=== PATIENT | male | born 1955 | race Caucasian/White ===

== ENCOUNTER 2019-04-10 11:24 | Inpatient (IN) | payer OTHER ==
[2019-04-10 13:00] VITALS: BMI 30.8
--- NOTE | 2019-04-10 14:01 | HP ---
CIWA Score Nausea/Vomitin Muscle Tremors: 4-Moderate,w/Arms Extend Anxiety: 2 Agitation: 0-Normal Activity Paroxysmal Sweats: 2 Orientation: 0-Oriented Tacttile Disturbances: 2-Mild Itch/Numbness/Burn Auditory Disturbances: 0-None Visual Disturbances: 2-Mild Sensitivity Headache: 0-None Present CIWA-Ar Total Score: 14 - Admission Criteria OASAS Guidelines: Admission for Medically Managed Detox: Requires at least one of the followin. CIWA greater than 12 2. Seizures within the past 24 hours 3. Delirium tremens within the past 24 hours 4. Hallucinations within the past 24 hours 5. Acute intervention needed for co occurring medical disorder 6. Acute intervention needed for co occurring psychiatric disorder 7. Severe withdrawal that cannot be handled at a lower level of care (continued vomiting, continued diarrhea, abnormal vital signs) requiring intravenous medication and/or fluids 8. Admission ROS S - HPI Allergies/Adverse Reactions: Allergies Allergy/AdvReac Type Severity Reaction Status Date / Time No Known Allergies Allergy Verified 04/10/19 12:48 History of Present Illness: 64 y.o. male requesting detox from etoh use , reports 2-3 pints vodka/day x 2 years after life stressors , latest use yesterday evening , current symptoms as above ,starts drinking upon awakening 8 am , + blackout on Sunday , + fall while intoxicated denies head injury , has had falls in the past w/ knee injury , + tremors if not drinking , current ludmila 0.057 . tobacco : 1 ppd cannabis- sporadically PMHX : htn, hypothyroid , spinal stenosis , early MS / neurologiical deficit, OA pshx :denies psych : depression , anxiety , denies SI / HI shx : lives [place] , unemployed - Ebola screening Have you traveled outside of the country in the last 21 days: No Have you had contact with anyone from an Ebola affected area: No Do you have a fever: No - Review of Systems Constitutional: Loss of Appetite EENT: reports: Other (glasses - reading denutres - upper) Respiratory: reports: No Symptoms reported Cardiac: reports: No Symptoms Reported GI: reports: See HPI, Nausea, Poor Appetite : reports: No Symptoms Reported Musculoskeletal: reports: Back Pain, Joint Pain Integumentary: reports: No Symptoms Reported Neuro: reports: See HPI, Tremors Endocrine: reports: See HPI Psychiatric: reports: Orientated x3, Agitated, Anxious Patient History - Smoking Cessation Smoking history: Current every day smoker Have you smoked in the past 12 months: Yes Hx Chewing Tobacco Use: No Initiated information on smoking cessation: Yes 'Breaking Loose' booklet given: 04/10/19 - Substances abused Alcohol Substance route: Oral Frequency: Daily Amount used: 2 pints of vodka Age of first use: 17 Date of last use: 04/09/19 Admission Physical Exam S - Vital Signs Vital Signs: Vital Signs - 24 hr 04/10/19 12:48 Temperature 97.4 F L Pulse Rate 76 Respiratory 20 Rate Blood Pressure 150/85 - Physical General Appearance: Yes: Moderate Distress, Intoxicated, Irritable, Sweating, Anxious HEENTM: Yes: EOMI, Hearing grossly Normal, Normocephalic, Normal Voice Respiratory: Yes: Chest Non-Tender, Lungs Clear, Normal Breath Sounds, No Respiratory Distress, No Accessory Muscle Use Neck: Yes: No masses,lesions,Nodules, Trachea in good position Cardiology: Yes: Regular Rhythm, Regular Rate, S1, S2 Abdominal: Yes: Normal Bowel Sounds, Non Tender, Soft Musculoskeletal: Yes: Gait Steady, Joint Stiffness ([place] knees) Extremities: Yes: Normal Range of Motion, Non-Tender, Tremors Neurological: Yes: Fully Oriented, Alert, Motor Strength 5/5, Depressed Affect Integumentary: Yes: Warm, Other (superficial excoriation R anterior tibia , ecchymoses myrna knees .) - Diagnostic (1) Alcohol use disorder Current Visit: Yes Status: Acute Breathalyzer - Breathalyzer Breathalyzer: 0.057 Urine Drug Screen - Test Device Lot number: [id number] Expiration date: 12/13/20 - Control Is test valid?: Yes - Results Drug screen NEGATIVE: No Urine drug screen results: THC-Marijuana, BZO-Benzodiazepines Inpatient Rehab Admission - Rehab Decision to Admit Inpatient rehab admission?: No
[2019-04-10] MEDS ORDERED: MAG HYDROX/AL HYDROX/SIMETH 30 ML UNIT-DOSE CUP PO PRN (14:03)
[2019-04-10] MEDS ORDERED: hydrOXYzine PAMOATE 25 MG CAPSULE (FP) PO PRN (14:03)
[2019-04-10] MEDS ORDERED: IBUPROFEN 400 MG TABLET (FP) PO PRN (14:03)
[2019-04-10] MEDS ORDERED: MAGNESIUM HYDROX 2400MG/30ML ORAL SUSPENSION 30 ML CUP PO PRN (14:03)
[2019-04-10] MEDS ORDERED: ACETAMINOPHEN 325 MG TABLET (FP) PO PRN (14:03)
[2019-04-10] MEDS ORDERED: MENTHOL/PHENOL 1 EACH UD MM PRN (14:03)
[2019-04-10] MEDS ORDERED: BISMUTH SUBSALICYLATE 524 MG/30 ML UD PO PRN (14:03)
[2019-04-10] MEDS ORDERED: MAGNESIUM CITRATE 300 ML BOTTLE PO PRN (14:03)
[2019-04-10] MEDS ORDERED: chlordiazePOXIDE HCL 25 MG CAPSULE PO PRN (14:08)
[2019-04-10] MEDS ORDERED: chlordiazePOXIDE HCL 25 MG CAPSULE PO ONE (14:08)
[2019-04-10] MEDS: amLODIPine BESYLATE 10 MG TABLET (FP) PO SCH (17:33)
[2019-04-10] MEDS: chlordiazePOXIDE HCL 25 MG CAPSULE PO SCH ×2 (17:33→22:17)
[2019-04-10] MEDS: THIAMINE HCL 100 MG TABLET (FP) PO SCH (22:17)
[2019-04-11] MEDS: chlordiazePOXIDE HCL 25 MG CAPSULE PO SCH ×4 (06:55→22:08)
--- NOTE | 2019-04-11 09:28 | CONSULT ---
[facility] Psychiatric Consult - Data Date of interview: 04/11/19 Admission source: [facility] Identifying data: Mr Plata is a 64 years old male, unemployed [facility] [place] food stamp, homeless seeking detox treatment for alcohol Substance Abuse History: Reports history of alcohol use. Refer to addiction counselor's summary for further information Medical History: Significant for hypertension, hypothyroidism, early multiple sclerosis, spinal stenosis, osteoarthritis, history of renal cell carcinoma. Smokes cigarettes 1 ppd Psychiatric History: Reports that that 10 years ago he was referred by his primary care physician to a private psychiatrist who diagnosed with him with depression and started him on psychotropic medications. Reports taking different medications over the years including Zoloft, Abilify and finally Lexapro which he started taking 1.5 year ago. Reports 2 previous psychiatric hospitalizations at [facility] and most recently at [facility] 3 weeks ago. He was discharged on Lexapro 20 mg/day which he took 2 days ago. Reports one previous suicidal attempt by overdose on pills years ago. At present , reports feeling depressed Physical/Sexual Abuse/Trauma History: Denies history of emotional, physical or sexual abuse as well as DV relationship Mental Status Exam - Mental Status Exam Alert and Oriented to: Time, Place, Person Cognitive Function: Fair Patient Appearance: Disheveled Mood: Depressed Affect: Appropriate Patient Behavior: Cooperative Speech Pattern: Clear Voice Loudness: Normal Thought Process: Intact, Goal Oriented Hallucinations: Denies Suicidal Ideation: Denies Homicidal Ideation: Denies Insight/Judgement: Poor Sleep: Poorly Appetite: Fair Muscle strength/Tone: Normal Gait/Station: Normal Psychiatric Findings - Problem List ([place] 1, 2,3) (1) MDD (major depressive disorder), recurrent episode Current Visit: Yes Status: Chronic (2) Alcohol-induced mood disorder Current Visit: Yes Status: Acute (3) Uncomplicated alcohol dependence Current Visit: Yes Status: Acute (4) Nicotine dependence Current Visit: Yes Status: Chronic (5) HTN (hypertension) Current Visit: Yes Status: Chronic (6) Hypothyroidism Current Visit: Yes Status: Chronic (7) Spinal stenosis Current Visit: Yes Status: Chronic (8) MS (multiple sclerosis) Current Visit: Yes Status: Chronic (9) Osteoarthritis Current Visit: Yes Status: Chronic (10) Renal cell carcinoma Current Visit: Yes Status: Chronic - Initial Treatment Plan Initial Treatment Plan: 1) Resume Lexapro 20 mg po daily. 2) Continue inpatient detoxification
[2019-04-11 09:41] LABS: ALBUMIN 3.6 g/dl (3.4-5.0); BILIRUBIN,TOTAL 1.4 mg/dL (0.2-1); BLOOD UREA NITROGEN 11.9 mg/dL (7-18); CALCIUM 8.4 mg/dL (8.5-10.1); CREATININE 0.8 mg/dL (0.55-1.3); HEMATOCRIT 41.1 % (35.4-49); HEMOGLOBIN 14.1 GM/dL (11.7-16.9); MCH 33.2 pg (25.7-33.7); MCHC 34.2 g/dl (32.0-35.9); MEAN CELL VOLUME 97.1 fl (80-96); MEAN PLT VOLUME 8.6 fl (7.5-11.1); PLATELET COUNT 161 K/MM3 (134-434); POTASSIUM 3.4 mmol/L (3.5-5.1); RBC 4.23 M/mm3 (4.00-5.60); RDW 13.9 % (11.9-15.9); TOT PROT 6.3 g/dl (6.4-8.2); WHITE BLOOD COUNT 5.3 K/mm3 (4.0-10.0)
[2019-04-11] MEDS: PRENATAL VITAMINS W/ FOLIC ACID TABLET (FP) PO SCH (10:27)
[2019-04-11] MEDS: amLODIPine BESYLATE 10 MG TABLET (FP) PO SCH (10:27)
[2019-04-11] MEDS: ESCITALOPRAM OXALATE 20 MG TABLET (FP) PO SCH (10:28)
[2019-04-11] MEDS ORDERED: POTASSIUM CHLORIDE TABS 20 MEQ TABLET.ER (FP) PO ONE (10:39)
[2019-04-11] MEDS ORDERED: TRIMETHOBENZAMIDE HCL 300 MG CAPSULE PO PRN (10:41)
--- NOTE | 2019-04-11 10:41 | PN ---
S CIWA - CIWA Score Nausea/Vomitin-Mild Nausea/No Vomiting Muscle Tremors: 3 Anxiety: 3 Agitation: 3 Paroxysmal Sweats: 3 Orientation: 0-Oriented Tacttile Disturbances: 0-None Auditory Disturbances: 0-None Visual Disturbances: 0-None Headache: 0-None Present CIWA-Ar Total Score: 13 S Progress Note (SOAP) Subjective: diarrhea sweats shakes interrupted sleep nausea Objective: 04/11/19 10:40 Vital Signs Temperature 97.9 F 04/11/19 09:31 Pulse Rate 73 04/11/19 09:31 Respiratory Rate 18 04/11/19 09:31 Blood Pressure 122/70 04/11/19 09:31 O2 Sat by Pulse Oximetry (%) Laboratory Tests 04/11/19 04/11/19 07:30 07:30 WBC 5.3 RBC 4.23 Hgb 14.1 Hct 41.1 MCV 97.1 H MCH 33.2 MCHC 34.2 RDW 13.9 Plt Count 161 MPV 8.6 Sodium 140 Potassium 3.4 L Chloride 103 Carbon Dioxide 31 Anion Gap 6 L BUN 11.9 Creatinine 0.8 Est GFR (CKD-EPI)AfAm 110.96 Est GFR (CKD-EPI)NonAf 95.74 Random Glucose 95 Calcium 8.4 L Total Bilirubin 1.4 H AST 26 ALT 30 Alkaline Phosphatase 73 Total Protein 6.3 L Albumin 3.6 labs noted mild hypokalemai 3.4 noted aaox3 lying in bed no acute distress Assessment: 04/11/19 10:41 withdrawals Plan: continue detox increase fluids zofran sl prn kdur [id number] x one ordered
[2019-04-11] MEDS: THIAMINE HCL 100 MG TABLET (FP) PO SCH (22:08)
[2019-04-11] MEDS: MELATONIN 5 MG TABLETS PO PRN (22:09)
[2019-04-12] MEDS: chlordiazePOXIDE HCL 25 MG CAPSULE PO SCH ×4 (06:04→22:00)
[2019-04-12] MEDS: LEVOTHYROXINE NA 25 MCG TABLET (FP) PO SCH (06:06)
[2019-04-12] MEDS: PRENATAL VITAMINS W/ FOLIC ACID TABLET (FP) PO SCH (10:19)
[2019-04-12] MEDS: amLODIPine BESYLATE 10 MG TABLET (FP) PO SCH (10:19)
[2019-04-12] MEDS: ESCITALOPRAM OXALATE 20 MG TABLET (FP) PO SCH (10:20)
--- NOTE | 2019-04-12 13:11 | PN ---
[facility] CIWA - CIWA Score Nausea/Vomitin-No Nausea/No Vomiting Muscle Tremors: 2 Anxiety: 3 Agitation: 1-Slight > Activity Paroxysmal Sweats: 3 Orientation: 0-Oriented Tacttile Disturbances: 0-None Auditory Disturbances: 0-None Visual Disturbances: 0-None Headache: 0-None Present CIWA-Ar Total Score: 9 S Progress Note (SOAP) Subjective: c/o body aches, sweats, anxiety, and interrupted sleep. Objective: 04/12/19 13:10 Vital Signs 04/12/19 04/12/19 07:46 09:46 Temperature 97.2 F L 97.9 F Pulse Rate 59 L 55 L Respiratory 18 16 Rate Blood Pressure 129/73 119/69 Lab Results WBC 5.3 K/mm3 (4.0-10.0) 04/11/19 07:30 RBC 4.23 M/mm3 (4.00-5.60) 04/11/19 07:30 Hgb 14.1 GM/dL (11.7-16.9) 04/11/19 07:30 Hct 41.1 % (35.4-49) 04/11/19 07:30 MCV 97.1 fl (80-96) H 04/11/19 07:30 MCHC 34.2 g/dl (32.0-35.9) 04/11/19 07:30 RDW 13.9 % (11.9-15.9) 04/11/19 07:30 Plt Count 161 K/MM3 (134-434) 04/11/19 07:30 Sodium 140 mmol/L (136-145) 04/11/19 07:30 Potassium 3.4 mmol/L (3.5-5.1) L 04/11/19 07:30 Chloride 103 mmol/L (98-107) 04/11/19 07:30 Carbon Dioxide 31 mmol/L (21-32) 04/11/19 07:30 Anion Gap 6 MMOL/L (8-16) L 04/11/19 07:30 BUN 11.9 mg/dL (7-18) 04/11/19 07:30 Creatinine 0.8 mg/dL (0.55-1.3) 04/11/19 07:30 Random Glucose 95 mg/dL (74-106) 04/11/19 07:30 Calcium 8.4 mg/dL (8.5-10.1) L 04/11/19 07:30 Labs noted. Assessment: 04/12/19 13:11 Pt is alert and oriented x3 and in no acute respiratory distress. Full ROM, ambulating in the unit. Withdrawal symptoms. Plan: continue detox.
[2019-04-12] MEDS: ACETAMINOPHEN 325 MG TABLET (FP) PO PRN (17:04)
[2019-04-12] MEDS: MELATONIN 5 MG TABLETS PO PRN (22:00)
[2019-04-12] MEDS: THIAMINE HCL 100 MG TABLET (FP) PO SCH (22:00)
[2019-04-13] MEDS ORDERED: chlordiazePOXIDE HCL 10 MG CAPSULE PO PRN
[2019-04-13] MEDS: LEVOTHYROXINE NA 25 MCG TABLET (FP) PO SCH (06:33)
[2019-04-13] MEDS: chlordiazePOXIDE HCL 10 MG CAPSULE PO SCH ×4 (06:33→22:18)
[2019-04-13] MEDS: ESCITALOPRAM OXALATE 20 MG TABLET (FP) PO SCH (10:33)
[2019-04-13] MEDS: PRENATAL VITAMINS W/ FOLIC ACID TABLET (FP) PO SCH (10:33)
[2019-04-13] MEDS: amLODIPine BESYLATE 10 MG TABLET (FP) PO SCH (10:33)
--- NOTE | 2019-04-13 17:43 | PN ---
[facility] CIWA - CIWA Score Nausea/Vomitin-No Nausea/No Vomiting Muscle Tremors: 2 Anxiety: 2 Agitation: 2 Paroxysmal Sweats: 2 Orientation: 0-Oriented Tacttile Disturbances: 0-None Auditory Disturbances: 0-None Visual Disturbances: 0-None Headache: 0-None Present CIWA-Ar Total Score: 8 B[facility] Progress Note (SOAP) Subjective: Body ache, sweating, feeling exhausted, interrupted sleep Objective: 04/13/19 17:39 Last Vital Signs Temp Pulse Resp BP Pulse Ox 99.1 F 59 L 18 110/79 04/13/19 17:14 04/13/19 17:14 04/13/19 17:14 04/13/19 17:14 Laboratory Tests 04/11/19 04/11/19 04/11/19 07:30 07:30 07:30 WBC 5.3 RBC 4.23 Hgb 14.1 Hct 41.1 MCV 97.1 H MCH 33.2 MCHC 34.2 RDW 13.9 Plt Count 161 MPV 8.6 Sodium 140 Potassium 3.4 L Chloride 103 Carbon Dioxide 31 Anion Gap 6 L BUN 11.9 Creatinine 0.8 Est GFR (CKD-EPI)AfAm 110.96 Est GFR (CKD-EPI)NonAf 95.74 Random Glucose 95 Calcium 8.4 L Total Bilirubin 1.4 H AST 26 ALT 30 Alkaline Phosphatase 73 Total Protein 6.3 L Albumin 3.6 RPR Titer Nonreactive Labs reviewed: K 3.4 (replenished), repeat serum K level, elevated total bilirubin (will repeat level) Assessment: 04/13/19 17:41 Withdrawal sxs Noted with elevated total bilirubin level and hypokalemia Plan: Continue detox Encouraged PO water intake Elevated total bilirubin level: repeat in AM Hypokalemia: replenished, repeat serum K level in AM
[2019-04-13] MEDS: MELATONIN 5 MG TABLETS PO PRN (22:18)
[2019-04-13] MEDS: THIAMINE HCL 100 MG TABLET (FP) PO SCH (22:18)
[2019-04-14] MEDS: chlordiazePOXIDE HCL 10 MG CAPSULE PO SCH ×2 (06:46→17:36)
[2019-04-14] MEDS: LEVOTHYROXINE NA 25 MCG TABLET (FP) PO SCH (06:47)
[2019-04-14] MEDS: PRENATAL VITAMINS W/ FOLIC ACID TABLET (FP) PO SCH (10:15)
[2019-04-14] MEDS: ESCITALOPRAM OXALATE 20 MG TABLET (FP) PO SCH (10:15)
[2019-04-14] MEDS: amLODIPine BESYLATE 10 MG TABLET (FP) PO SCH (10:15)
--- NOTE | 2019-04-14 11:29 | PN ---
[facility] CIWA - CIWA Score Nausea/Vomitin-Mild Nausea/No Vomiting Muscle Tremors: 1-None Visible, but [place] Anxiety: 1-Mildly Anxious Agitation: 1-Slight > Activity Paroxysmal Sweats: No Perspiration Orientation: 0-Oriented Tacttile Disturbances: 0-None Auditory Disturbances: 0-None Visual Disturbances: 0-None Headache: 1-Very Mild CIWA-Ar Total Score: 5 BHS Progress Note (SOAP) Subjective: alert,irritable,anxious Objective: 04/14/19 11:28 Vital Signs Temperature 96.3 F L 04/14/19 09:09 Pulse Rate 50 L 04/14/19 09:09 Respiratory Rate 18 04/14/19 09:09 Blood Pressure 136/73 04/14/19 09:09 O2 Sat by Pulse Oximetry (%) Assessment: 04/14/19 11:29 withdrawal symptom Plan: continue detox librium regimen,repeat yola weiss pending
[2019-04-14 12:37] LABS: BILIRUBIN,TOTAL 0.7 mg/dL (0.2-1); POTASSIUM 3.2 mmol/L (3.5-5.1)
[2019-04-14] MEDS: THIAMINE HCL 100 MG TABLET (FP) PO SCH (22:19)
[2019-04-14] MEDS: MELATONIN 5 MG TABLETS PO PRN (22:50)
[2019-04-14] MEDS: ACETAMINOPHEN 325 MG TABLET (FP) PO PRN (22:51)
[2019-04-15] MEDS ORDERED: chlordiazePOXIDE HCL 10 MG CAPSULE PO ONE (05:00)
[2019-04-15 06:41] VITALS: BP 121/72; PULSE 46; TEMP 96.8
--- NOTE | 2019-04-15 10:09 | DS ---
[facility] Detox Discharge Summary Admission Date: 04/10/19 Discharge Date: 04/15/19 - History Present History: Alcohol Dependence - Physical Exam Results Vital Signs: Vital Signs Temperature 96.8 F L 04/15/19 06:00 Pulse Rate 46 L 04/15/19 06:00 Respiratory Rate 18 04/15/19 06:00 Blood Pressure 121/72 04/15/19 06:00 O2 Sat by Pulse Oximetry (%) Pertinent Admission Physical Exam Findings: pt arrived in withdrawals Laboratory Tests 04/11/19 04/11/19 04/11/19 07:30 07:30 07:30 WBC 5.3 RBC 4.23 Hgb 14.1 Hct 41.1 MCV 97.1 H MCH 33.2 MCHC 34.2 RDW 13.9 Plt Count 161 MPV 8.6 Sodium 140 Potassium 3.4 L Chloride 103 Carbon Dioxide 31 Anion Gap 6 L BUN 11.9 Creatinine 0.8 Est GFR (CKD-EPI)AfAm 110.96 Est GFR (CKD-EPI)NonAf 95.74 Random Glucose 95 Calcium 8.4 L Total Bilirubin 1.4 H AST 26 ALT 30 Alkaline Phosphatase 73 Total Protein 6.3 L Albumin 3.6 RPR Titer Nonreactive 04/14/19 09:12 WBC RBC Hgb Hct MCV MCH MCHC RDW Plt Count MPV Sodium Potassium 3.2 L Chloride Carbon Dioxide Anion Gap BUN Creatinine Est GFR (CKD-EPI)AfAm Est GFR (CKD-EPI)NonAf Random Glucose Calcium Total Bilirubin 0.7 AST ALT Alkaline Phosphatase Total Protein Albumin RPR Titer today pt is aaox3 ambulating no acute distress no s/s of withdrawals - Treatment Hospital Course: Detox Protocol Followed, Detoxed Safely, Responded well, Discharged Condition Good, Rehab Referral Accepted - Medication Discharge Medications: Ambulatory Orders Amlodipine Besylate [Norvasc -] 10 mg PO DAILY 04/10/19 Escitalopram Oxalate [Lexapro -] 20 mg PO DAILY 04/10/19 Levothyroxine [Synthroid -] 50 mcg PO DAILY 04/10/19 Metoprolol Succinate [Toprol Xl] 100 mg PO DAILY 04/10/19 - Diagnosis (1) Alcohol-induced mood disorder Current Visit: Yes Status: Acute (2) Uncomplicated alcohol dependence Current Visit: Yes Status: Chronic (3) HTN (hypertension) Current Visit: Yes Status: Chronic Qualifiers: Hypertension type: essential hypertension Qualified Code(s): I10 - Essential (primary) hypertension (4) Hypothyroidism Current Visit: Yes Status: Chronic (5) MDD (major depressive disorder), recurrent episode Current Visit: Yes Status: Chronic Qualifiers: Major depression episode severity: unspecified Qualified Code(s): F33.9 - Major depressive disorder, recurrent, unspecified (6) MS (multiple sclerosis) Current Visit: Yes Status: Chronic (7) Nicotine dependence Current Visit: Yes Status: Chronic Qualifiers: Nicotine product type: cigarettes Substance use status: uncomplicated Qualified Code(s): F17.210 - Nicotine dependence, cigarettes, uncomplicated (8) Osteoarthritis Current Visit: Yes Status: Chronic (9) Renal cell carcinoma Current Visit: Yes Status: Chronic (10) Spinal stenosis Current Visit: Yes Status: Chronic - AMA Did Patient Leave Against Medical Advice: No
== END 2019-04-15 09:44 | disposition home or self-care (01) | DRG 775 ==
LOC: YASAS 11:24 → Y6N 16:28
PROVIDERS: ADMIT Surgery; ATTEND Surgery
PROC: HZ2ZZZZ Detoxification Services for Substance Abuse Treatment (ICD-10-PCS; principal; 2019-04-10)
DX: F10.230 Alcohol dependence with withdrawal, uncomplicated (principal); F10.24 Alcohol dependence with alcohol-induced mood disorder; F17.210 Nicotine dependence, cigarettes, uncomplicated; F33.9 Major depressive disorder, recurrent, unspecified; I10 Essential (primary) hypertension; E03.9 Hypothyroidism, unspecified; G35 Multiple sclerosis; M19.90 Unspecified osteoarthritis, unspecified site; M48.00 Spinal stenosis, site unspecified; E87.6 Hypokalemia; E80.6 Other disorders of bilirubin metabolism; Z85.528 Personal history of other malignant neoplasm of kidney
CPT/HCPCS: 36415; 80053; 82247; 84132; 85027; 86593

== ENCOUNTER 2021-09-13 20:54 | Inpatient (IN) | payer OTHER ==
[2021-09-13] MEDS ORDERED: MAGNESIUM CITRATE 300 ML BOTTLE PO PRN (22:45)
[2021-09-13] MEDS ORDERED: BISMUTH SUBSALICYLATE 524 MG/30 ML PO PRN (22:45)
[2021-09-13] MEDS ORDERED: guaiFENesin 200 MG/10 ML 10 ML UNIT-DOSE CUPS PO PRN (22:45)
[2021-09-13] MEDS ORDERED: DICYCLOMINE HCL 10 MG CAPSULE PO PRN (22:45)
[2021-09-13] MEDS ORDERED: MAG HYDROX/AL HYDROX/SIMETH 30 ML UNIT-DOSE CUP PO PRN (22:45)
[2021-09-13] MEDS ORDERED: MAGNESIUM HYDROX 2400MG/30ML ORAL SUSPENSION 30 ML CUP PO PRN (22:45)
[2021-09-13] MEDS ORDERED: P-EPHED 60MG/TRIPROLIDI 2.5MG TABLET PO PRN (22:45)
[2021-09-13] MEDS ORDERED: MENTHOL/PHENOL 1 EACH UD MM PRN (22:45)
[2021-09-13] MEDS ORDERED: ACETAMINOPHEN 325 MG TABLET (FP) PO PRN (22:45)
[2021-09-13] MEDS ORDERED: ONDANSETRON *ODT* 4 MG TABLET SL PRN (22:45)
[2021-09-13] MEDS ORDERED: NICOTINE POLACRILEX 2 MG GUM BUC PRN (22:45)
[2021-09-13] MEDS ORDERED: LOPERAMIDE HCL 2 MG CAPSULE PO PRN (22:45)
[2021-09-13 23:09] VITALS: BMI 23.6
[2021-09-14] MEDS: ACETAMINOPHEN 325 MG TABLET (FP) PO PRN ×2 (03:55→22:54)
[2021-09-14] MEDS ORDERED: chlordiazePOXIDE HCL 25 MG CAPSULE PO PRN (10:55)
[2021-09-14] MEDS ORDERED: LEVOTHYROXINE NA 25 MCG TABLET (FP) PO ONE (11:00)
[2021-09-14] MEDS: NICOTINE 14 MG/24 HOURS TOPICAL PATCH TD SCH (11:44)
[2021-09-14] MEDS: PRENATAL VITAMINS W/ FOLIC ACID TABLET (FP) PO SCH (11:44)
[2021-09-14] MEDS: chlordiazePOXIDE HCL 25 MG CAPSULE PO SCH ×3 (11:45→22:50)
[2021-09-14 14:15] LABS: HEMATOCRIT 28.9 % (35.4-49); HEMOGLOBIN 10.2 GM/dL (11.7-16.9); MCH 32.8 pg (25.7-33.7); MCHC 35.4 g/dl (32.0-35.9); MEAN CELL VOLUME 92.7 fl (80-96); MEAN PLT VOLUME 7.9 fl (7.5-11.1); PLATELET COUNT 184 10^3/uL (134-434); RBC 3.12 M/mm3 (4.00-5.60); RDW 13.3 % (11.9-15.9); WHITE BLOOD COUNT 10.3 K/mm3 (4.0-10.0)
[2021-09-14 14:23] LABS: ALBUMIN 3.1 g/dl (3.4-5.0); BLOOD UREA NITROGEN 13.4 mg/dL (7-18); CALCIUM 8.2 mg/dL (8.5-10.1)
[2021-09-14 14:26] LABS: CREATININE 0.8 mg/dL (0.55-1.3)
[2021-09-14 14:28] LABS: BILIRUBIN,TOTAL 1.2 mg/dL (0.2-1); TOT PROT 6.2 g/dl (6.4-8.2)
[2021-09-14 15:13] LABS: HIV INTERPRETATION NEGATIVE (NEGATIVE)
[2021-09-14] MEDS: IBUPROFEN 400 MG TABLET (FP) PO PRN (18:31)
[2021-09-14] MEDS: MELATONIN 5 MG TABLETS PO SCH (22:49)
[2021-09-14] MEDS: THIAMINE HCL 100 MG TABLET (FP) PO SCH (22:51)
[2021-09-15] MEDS: chlordiazePOXIDE HCL 25 MG CAPSULE PO SCH ×4 (05:34→22:03)
[2021-09-15] MEDS: ESCITALOPRAM OXALATE 20 MG TABLET PO SCH (10:07)
[2021-09-15] MEDS: PRENATAL VITAMINS W/ FOLIC ACID TABLET (FP) PO SCH (10:08)
[2021-09-15] MEDS: METHOCARBAMOL 500 MG TABLET PO PRN ×2 (10:08→22:02)
[2021-09-15] MEDS: hydrOXYzine PAMOATE 25 MG CAPSULE (FP) PO PRN (10:08)
[2021-09-15] MEDS: NICOTINE 14 MG/24 HOURS TOPICAL PATCH TD SCH (10:08)
[2021-09-15] MEDS: ACETAMINOPHEN 325 MG TABLET (FP) PO PRN (10:09)
[2021-09-15] MEDS: amLODIPine BESYLATE 10 MG TABLET (FP) PO SCH (12:34)
[2021-09-15] MEDS: METOPROLOL TARTRATE 50 MG TABLET (FP) PO SCH ×2 (12:34→22:03)
[2021-09-15] MEDS: NICOTINE 10 MG CARTRIDGE (INHALER) IH PRN ×2 (18:39→22:04)
[2021-09-15] MEDS: IBUPROFEN 400 MG TABLET (FP) PO PRN (22:02)
[2021-09-15] MEDS: MELATONIN 5 MG TABLETS PO SCH (22:02)
[2021-09-15] MEDS: THIAMINE HCL 100 MG TABLET (FP) PO SCH (22:03)
[2021-09-16] MEDS: chlordiazePOXIDE HCL 25 MG CAPSULE PO SCH ×4 (06:14→22:30)
[2021-09-16] MEDS: amLODIPine BESYLATE 10 MG TABLET (FP) PO SCH (10:38)
[2021-09-16] MEDS: ESCITALOPRAM OXALATE 20 MG TABLET PO SCH (10:38)
[2021-09-16] MEDS: hydrOXYzine PAMOATE 25 MG CAPSULE (FP) PO PRN (10:38)
[2021-09-16] MEDS: PRENATAL VITAMINS W/ FOLIC ACID TABLET (FP) PO SCH (10:38)
[2021-09-16] MEDS: METOPROLOL TARTRATE 50 MG TABLET (FP) PO SCH ×2 (10:38→22:30)
[2021-09-16] MEDS: METHOCARBAMOL 500 MG TABLET PO PRN ×2 (10:38→17:30)
[2021-09-16] MEDS: NICOTINE 14 MG/24 HOURS TOPICAL PATCH TD SCH (10:39)
[2021-09-16] MEDS: NICOTINE 10 MG CARTRIDGE (INHALER) IH PRN ×2 (10:40→20:51)
[2021-09-16 13:00] LABS: HEMATOCRIT 29.2 % (35.4-49); HEMOGLOBIN 10.4 GM/dL (11.7-16.9); MCHC 35.7 g/dl (32.0-35.9); MEAN CELL VOLUME 92.2 fl (80-96); PLATELET COUNT 192 10^3/uL (134-434); RBC 3.16 M/mm3 (4.00-5.60); RDW 13.3 % (11.9-15.9); WHITE BLOOD COUNT 6.7 K/mm3 (4.0-10.0)
[2021-09-16 13:10] LABS: ALBUMIN 2.8 g/dl (3.4-5.0); BLOOD UREA NITROGEN 11.9 mg/dL (7-18)
[2021-09-16 13:13] LABS: CREATININE 0.7 mg/dL (0.55-1.3)
[2021-09-16 13:14] LABS: BILIRUBIN,TOTAL 1.2 mg/dL (0.2-1); TOT PROT 6.1 g/dl (6.4-8.2)
[2021-09-16 14:08] LABS: SARS-CoV-2 NAA Not Detected (Not Detected)
[2021-09-16] MEDS: IBUPROFEN 400 MG TABLET (FP) PO PRN (17:30)
[2021-09-16] MEDS: THIAMINE HCL 100 MG TABLET (FP) PO SCH (22:30)
[2021-09-16] MEDS: MELATONIN 5 MG TABLETS PO SCH (22:30)
[2021-09-17] MEDS ORDERED: chlordiazePOXIDE HCL 10 MG CAPSULE PO PRN
[2021-09-17] MEDS: chlordiazePOXIDE HCL 10 MG CAPSULE PO SCH ×2 (05:21→13:36)
[2021-09-17] MEDS: amLODIPine BESYLATE 10 MG TABLET (FP) PO SCH (13:34)
[2021-09-17] MEDS: ESCITALOPRAM OXALATE 20 MG TABLET PO SCH (13:34)
[2021-09-17] MEDS: NICOTINE 10 MG CARTRIDGE (INHALER) IH PRN (13:34)
[2021-09-17] MEDS: METOPROLOL TARTRATE 50 MG TABLET (FP) PO SCH (13:34)
[2021-09-17] MEDS: NICOTINE 14 MG/24 HOURS TOPICAL PATCH TD SCH (13:35)
[2021-09-17] MEDS: PRENATAL VITAMINS W/ FOLIC ACID TABLET (FP) PO SCH (13:35)
[2021-09-17 14:18] VITALS: BP 114/55; PULSE 76; TEMP 97.3
[2021-09-18] MEDS ORDERED: chlordiazePOXIDE HCL 10 MG CAPSULE PO SCH (05:00)
[2021-09-19] MEDS ORDERED: chlordiazePOXIDE HCL 10 MG CAPSULE PO ONE (05:00)
== END 2021-09-17 15:10 | disposition left against medical advice (07) | DRG 770 ==
LOC: YASAS 20:54 → UNDOADMIN 23:02 → Y6N 23:02
PROVIDERS: ADMIT Allergy & Immunology; ATTEND Allergy & Immunology
PROC: HZ2ZZZZ Detoxification Services for Substance Abuse Treatment (ICD-10-PCS; principal; 2021-09-13)
DX: F11.23 Opioid dependence with withdrawal (principal); F10.230 Alcohol dependence with withdrawal, uncomplicated; F17.210 Nicotine dependence, cigarettes, uncomplicated; F33.9 Major depressive disorder, recurrent, unspecified; F10.24 Alcohol dependence with alcohol-induced mood disorder; E03.9 Hypothyroidism, unspecified; I10 Essential (primary) hypertension; G35 Multiple sclerosis; M19.90 Unspecified osteoarthritis, unspecified site; R29.6 Repeated falls; Z85.528 Personal history of other malignant neoplasm of kidney; Z91.81 History of falling; Z56.0 Unemployment, unspecified; Z59.00 Homelessness unspecified
CPT/HCPCS: 36415; 80053; 84443; 85027; 86780; 87389; 93005; 93010; C9803; U0003; U0005

== ENCOUNTER 2021-09-17 07:48 | Emergency (ER) | payer OTHER ==
[2021-09-17 08:01] VITALS: BMI 23.6
[2021-09-17 09:22] LABS: BASO % 0.6 % (0-2.0); EOS % 5.8 % (0-4.5); HEMATOCRIT 32.3 % (35.4-49); HEMOGLOBIN 11.1 GM/dL (11.7-16.9); LYMPH % 15.2 % (8-40); MCH 32.3 pg (25.7-33.7); MCHC 34.4 g/dl (32.0-35.9); MEAN CELL VOLUME 93.8 fl (80-96); MEAN PLT VOLUME 7.4 fl (7.5-11.1); MONO % 14.1 % (3.8-10.2); NEUT % 64.3 % (42.8-82.8); PLATELET COUNT 253 10^3/uL (134-434); RBC 3.45 M/mm3 (4.00-5.60); RDW 13.5 % (11.9-15.9); WHITE BLOOD COUNT 11.3 K/mm3 (4.0-10.0)
[2021-09-17 09:32] LABS: INR 1.15 (0.83-1.09); PROTHROMBIN TIME (PATIENT) 13.2 SEC (9.7-13.0)
[2021-09-17 09:46] LABS: CALCIUM 9.1 mg/dL (8.5-10.1)
[2021-09-17 09:47] LABS: ALBUMIN 3.2 g/dl (3.4-5.0); BLOOD UREA NITROGEN 11.8 mg/dL (7-18)
[2021-09-17 09:49] LABS: MAGNESIUM 1.8 mg/dL (1.8-2.4)
[2021-09-17 09:50] LABS: CREATININE 0.8 mg/dL (0.55-1.3)
[2021-09-17 09:52] LABS: TOT PROT 7.1 g/dl (6.4-8.2)
[2021-09-17 09:53] LABS: PHOSPHOROUS 3.8 mg/dL (2.5-4.9)
[2021-09-17] MEDS ORDERED: BACITRACIN 0.9 GM PACKET ONE (11:13)
[2021-09-17 11:27] VITALS: BP 139/88; PULSE 67; TEMP 96.9
== END 2021-09-17 11:30 | disposition home or self-care (01) ==
LOC: JER 07:48
DX: I71.9 Aortic aneurysm of unspecified site, without rupture (principal); W01.0XXA Fall on same level from slipping, tripping and stumbling without subsequent striking against object, initial encounter
CPT/HCPCS: 36415; 70450-TC; 71046-TC-FY; 71250-TC; 72125-TC; 72131-TC; 73030-TC-LT-FY; 73060-TC-LT-FY; 80053; 83735; 84100; 85025; 85610; 85730; 93005; 93010; 99285-25

== ENCOUNTER 2022-02-09 12:17 | Inpatient (IN) | payer OTHER ==
[2022-02-09 13:47] VITALS: BMI 22.8
[2022-02-09] MEDS ORDERED: MAGNESIUM CITRATE 300 ML BOTTLE PO PRN (15:21)
[2022-02-09] MEDS ORDERED: BISMUTH SUBSALICYLATE 524 MG/30 ML PO PRN (15:21)
[2022-02-09] MEDS ORDERED: BENZOCAINE/MENTHOL (CHLORASEPTIC ) LOZENGE MM PRN (15:21)
[2022-02-09] MEDS ORDERED: LOPERAMIDE HCL 2 MG CAPSULE PO PRN (15:21)
[2022-02-09] MEDS ORDERED: ACETAMINOPHEN 325 MG TABLET (FP) PO PRN ×2 (15:21)
[2022-02-09] MEDS ORDERED: MAG HYDROX/AL HYDROX/SIMETH 30 ML UNIT-DOSE CUP PO PRN (15:21)
[2022-02-09] MEDS ORDERED: DICYCLOMINE HCL 10 MG CAPSULE PO PRN (15:21)
[2022-02-09] MEDS ORDERED: IBUPROFEN 600 MG TABLET (FP) PO PRN (15:21)
[2022-02-09] MEDS ORDERED: LORazepam 1 MG TABLET PO PRN (15:21)
[2022-02-09] MEDS ORDERED: MAGNESIUM HYDROX 2400MG/30ML ORAL SUSPENSION 30 ML CUP PO PRN (15:21)
[2022-02-09] MEDS ORDERED: ONDANSETRON *ODT* 4 MG TABLET SL PRN (15:21)
[2022-02-09] MEDS ORDERED: METHOCARBAMOL 500 MG TABLET PO PRN (15:21)
[2022-02-09] MEDS ORDERED: IBUPROFEN 400 MG TABLET (FP) PO PRN (15:21)
[2022-02-09] MEDS: LORazepam 2 MG TABLET PO SCH ×2 (20:04→23:39)
[2022-02-09] MEDS: NICOTINE 7 MG/24 HOURS TOPICAL PATCH TD SCH (23:35)
[2022-02-09] MEDS: hydrOXYzine PAMOATE 25 MG CAPSULE (FP) PO SCH ×2 (23:35→23:36)
[2022-02-09] MEDS: MELATONIN 5 MG TABLETS PO SCH (23:36)
[2022-02-09] MEDS: THIAMINE HCL 100 MG TABLET (FP) PO SCH (23:36)
[2022-02-09] MEDS ORDERED: LORazepam 2 MG TABLET ONE (23:38)
[2022-02-10] MEDS: amLODIPine BESYLATE 10 MG TABLET (FP) PO SCH ×2 (01:03→11:19)
[2022-02-10] MEDS ORDERED: hydrOXYzine PAMOATE 25 MG CAPSULE (FP) PO ONE (05:31)
[2022-02-10] MEDS ORDERED: LORazepam 2 MG TABLET ONE (05:31)
[2022-02-10] MEDS: LORazepam 2 MG TABLET PO SCH ×4 (05:32→23:18)
[2022-02-10] MEDS: hydrOXYzine PAMOATE 25 MG CAPSULE (FP) PO SCH ×5 (05:32→23:17)
[2022-02-10] MEDS ORDERED: LEVOTHYROXINE NA 50 MCG TABLET (FP) PO SCH (07:00)
[2022-02-10] MEDS: LEVOTHYROXINE NA 25 MCG TABLET (FP) PO SCH (08:18)
[2022-02-10 09:36] LABS: HEMATOCRIT 34.9 % (35.4-49); HEMOGLOBIN 11.9 GM/dL (11.7-16.9); MCH 30.3 pg (25.7-33.7); MCHC 34.1 g/dl (32.0-35.9); MEAN CELL VOLUME 88.8 fl (80-96); MEAN PLT VOLUME 7.3 fl (7.5-11.1); PLATELET COUNT 261 10^3/uL (134-434); RBC 3.93 M/mm3 (4.00-5.60); RDW 15.1 % (11.9-15.9); WHITE BLOOD COUNT 4.3 K/mm3 (4.0-10.0)
[2022-02-10] MEDS ORDERED: THIAMINE HCL 100 MG TABLET (FP) PO SCH (10:00)
[2022-02-10] MEDS ORDERED: HYDROCHLOROTHIAZIDE 12.5 MG CAPSULE (FP) PO SCH (10:00)
[2022-02-10 10:01] LABS: ALBUMIN 3.1 g/dl (3.4-5.0); BLOOD UREA NITROGEN 7.8 mg/dL (7-18); CALCIUM 8.5 mg/dL (8.5-10.1)
[2022-02-10 10:05] LABS: CREATININE 0.6 mg/dL (0.55-1.3)
[2022-02-10 10:06] LABS: BILIRUBIN,TOTAL 0.8 mg/dL (0.2-1); TOT PROT 7.2 g/dl (6.4-8.2)
[2022-02-10] MEDS: METOPROLOL TARTRATE 50 MG TABLET (FP) PO SCH ×2 (11:19→23:17)
[2022-02-10] MEDS: PRENATAL VITAMINS W/ FOLIC ACID TABLET (FP) PO SCH (11:19)
[2022-02-10] MEDS: FOLIC ACID 1 MG TABLET (FP) PO SCH (11:20)
[2022-02-10] MEDS: NICOTINE 7 MG/24 HOURS TOPICAL PATCH TD SCH (11:20)
[2022-02-10] MEDS ORDERED: cloNIDine HCL 0.1 MG TABLET PO ONE (12:49)
[2022-02-10 13:08] VITALS: RESP 18
[2022-02-10] MEDS ORDERED: POTASSIUM CHLORIDE ORAL LIQUID 20 MEQ/15 ML PO ONE (16:04)
[2022-02-10] MEDS: MELATONIN 5 MG TABLETS PO SCH (23:18)
[2022-02-10] MEDS: THIAMINE HCL 100 MG TABLET (FP) PO SCH (23:18)
[2022-02-10] MEDS: POTASSIUM CHLORIDE ORAL LIQUID 20 MEQ/15 ML PO SCH (23:18)
[2022-02-11] MEDS: LEVOTHYROXINE NA 25 MCG TABLET (FP) PO SCH (06:23)
[2022-02-11] MEDS: hydrOXYzine PAMOATE 25 MG CAPSULE (FP) PO SCH ×2 (06:23→10:01)
[2022-02-11] MEDS: LORazepam 1 MG TABLET PO SCH ×2 (06:24→10:02)
[2022-02-11 09:39] VITALS: BP 118/78; PULSE 65; TEMP 97.8
[2022-02-11] MEDS ORDERED: ESCITALOPRAM OXALATE 20 MG TABLET PO SCH (10:00)
[2022-02-11] MEDS: amLODIPine BESYLATE 10 MG TABLET (FP) PO SCH (10:01)
[2022-02-11] MEDS: FOLIC ACID 1 MG TABLET (FP) PO SCH (10:01)
[2022-02-11] MEDS: POTASSIUM CHLORIDE ORAL LIQUID 20 MEQ/15 ML PO SCH (10:01)
[2022-02-11] MEDS: PRENATAL VITAMINS W/ FOLIC ACID TABLET (FP) PO SCH (10:01)
[2022-02-11] MEDS: METOPROLOL TARTRATE 50 MG TABLET (FP) PO SCH (10:01)
[2022-02-12] MEDS ORDERED: LORazepam 0.5 MG TABLET PO PRN
[2022-02-12] MEDS ORDERED: LORazepam 0.5 MG TABLET PO SCH (05:00)
[2022-02-13] MEDS ORDERED: LORazepam 0.5 MG TABLET PO ONE (05:00)
== END 2022-02-11 10:39 | DRG 775 ==
LOC: YASAS 12:17 → Y6N 02-10 09:36
PROVIDERS: ADMIT Allergy & Immunology; ATTEND Surgery
PROC: HZ2ZZZZ Detoxification Services for Substance Abuse Treatment (ICD-10-PCS; principal; 2022-02-10)
DX: F10.230 Alcohol dependence with withdrawal, uncomplicated (principal); F10.24 Alcohol dependence with alcohol-induced mood disorder; F17.210 Nicotine dependence, cigarettes, uncomplicated; F33.9 Major depressive disorder, recurrent, unspecified; I10 Essential (primary) hypertension; M06.9 Rheumatoid arthritis, unspecified; E03.9 Hypothyroidism, unspecified; R45.851 Suicidal ideations; Z85.53 Personal history of malignant neoplasm of renal pelvis; Z86.19 Personal history of other infectious and parasitic diseases; Z91.51 Personal history of suicidal behavior; Z56.0 Unemployment, unspecified; Z59.00 Homelessness unspecified
CPT/HCPCS: 36415; 80053; 84132; 84450; 84460; 85027; 86780; C9803-CS; J0735; U0003; U0005